=== PATIENT | male | born 1960 | race Caucasian/White ===

== ENCOUNTER 2022-11-03 11:34 | Emergency (ER) | payer MEDICAID ==
[~2022-11-03] VITALS: Ht 172.7 cm; Wt 104.0 kg
[2022-11-03] MEDS ORDERED: ONDANSETRON HCL 4MG/2ML INJ IV STA (12:28)
[2022-11-03] MEDS ORDERED: MORPHINE SULFATE 4 MG/ML CPJ (NOT FOR IM USE) IV STA (12:28)
[2022-11-03] MEDS ORDERED: SODIUM CHLORIDE 0.9% 1,000 ML IV ONE (12:30)
[2022-11-03 13:10] LABS: BASOPHILS % 0.7 % (0.0-2.0); HEMATOCRIT. 27.7 % (42.0-52.0); HEMOGLOBIN. 9.1 g/dL (14.0-18.0); LYMPHOCYTES % 8.2 % (20.0-50.0); MEAN CORPUSCULAR HEMOGLOBIN 28.2 pg (28.0-32.0); MEAN CORPUSCULAR VOLUME 85.4 fL (80.0-94.0); MEAN PLATELET VOLUME 8.6 fl (7.4-10.4); MONOCYTES % 5.6 % (2.0-8.0); NEUTROPHILS % 84.5 % (40.0-76.0); PLATELET 522 x1000/uL (130-400); RED BLOOD CELL COUNT 3.25 mill/uL (4.7-6.1); RED CELL DISTRIBUTION WIDTH 14.6 % (11.6-14.6)
[2022-11-03 13:14] LABS: CHLORIDE 104 mEq/L (98-107)
[2022-11-03 14:47] VITALS: BP 115/72
[2022-11-03] MEDS ORDERED: HYDR-4001 MT (16:53)
== END 2022-11-03 18:31 | disposition home or self-care (01) ==
LOC: ER 12:51
DX: M25.551 Pain in right hip (principal); E78.00 Pure hypercholesterolemia, unspecified; I10 Essential (primary) hypertension; Z88.0 Allergy status to penicillin; Z98.890 Other specified postprocedural states
CPT/HCPCS: 36415; 72192; 73700; 80053; 85025; 96361; 96374; 96375; 99284; J2270; J2405; J7030